=== PATIENT | female | born 1965 | race Caucasian/White ===

== ENCOUNTER 2021-02-05 16:22 | Outpatient (CLI) | payer BC, SELFPAY ==
--- NOTE | ~2021-02-05 | MM_ITS ---
EXAMINATION: MM screening samreen BI w olivia HISTORY: Screening mammogram TECHNIQUE: Craniocaudal and mediolateral oblique 3-D tomosynthesis images were obtained and synthetic 2-D images were generated. CAD analysis was submitted and interpreted. COMPARISON: 10/05/2019 left diagnostic mammogram and limited left breast ultrasound 09/12/2019, 06/18/2017 bilateral digital screening mammogram examinations BREAST PARENCHYMAL COMPOSITION: The breasts are heterogeneously dense, which may obscure small masses . FINDINGS: There is question of new asymmetry in the posterior inner and posterior outer right breast on craniocaudal projection. Diagnostic right mammogram is recommended, with ultrasound if required. Otherwise there is no evidence of suspicious mass, calcification, or architectural distortion to sugg est malignancy in either breast. There has been no other suspicious interval change. IMPRESSION: 1. Question of new asymmetry in posterior inner and posterior outer right breast since 06/18/2017 2. Diagnostic right mammogram is recommended, with ultrasound if required BI-RADS Category 0: Incomplete: Needs additional imaging evaluation. Reviewed, dictated and finalized at location A. IMPRESSION: 1. Question of new asymmetry in posterior inner and posterior outer right breas t since 06/18/2017 2. Diagnostic right mammogram is recommended, with ultrasound if required BI-RADS Category 0: Incomplete: Needs additional imaging evaluation.
== END 2021-02-05 16:23 | disposition home or self-care (01) ==
LOC: ANHIMG 16:26
PROVIDERS: PCP Family Medicine; Visit Provider Obstetrics & Gynecology
DX: Z12.31 Encounter for screening mammogram for malignant neoplasm of breast (principal); R92.8 Other abnormal and inconclusive findings on diagnostic imaging of breast
CPT/HCPCS: 77063; 77067

== ENCOUNTER 2021-03-07 11:11 | Outpatient (CLI) | payer BC, SELFPAY ==
--- NOTE | ~2021-03-07 | MMUS_ITS ---
EXAMINATION: MM diagnostic mammo unilat RT, US breast RT complete HISTORY: Question of new asymmetry in posterior inner and posterior outer right breast on 02/05/2001 s creening mammogram TECHNIQUE: Additional full field ML and spot ML, MLO and craniocaudal 3-D tomosynthesis images of the right breast were performed and synthetic 2-D images were generated. CAD analysis was submitted and interpreted. High resolution complete right breast ultrasound was performed. COMPARISON: 02/05/2021 bilateral digital screening mammogram FINDINGS: MAMMOGRAPHIC FINDINGS: No suspicious mass or architectural distortion, malignant calcification, skin thickening or retractio n is detected. ULTRASOUND: 9:00 4 cm from nipple: 2.2 x 2.3 mm hypoechoic lesion without internal vascularity or posterior shado wing 10:00 5 cm from nipple: 1.8 x 2.4 mm hypoechoic lesion without internal vascularity. No suspicious mass or shadowing is detected elsewhere. IMPRESSION: 1. Probable benign hypoechoic lesions at 9:00 and 10:00 2. 6 month targeted 9 and 10:00 right breast ultrasound follow-up is recommended BI-RADS category 3, probably benign findings. Reviewed, dictated and finalized at location A. IMPRESSION: 1. Probable benign hypoechoic lesions at 9:00 and 10:00 2. 6 month targeted 9 and 10:00 right breast ultrasound follow-up is recommende d BI-RADS category 3, probably benign findings.
== END 2021-03-07 11:12 | disposition home or self-care (01) ==
LOC: ANHIMG 11:13
PROVIDERS: PCP Family Medicine; Visit Provider Obstetrics & Gynecology
DX: R92.8 Other abnormal and inconclusive findings on diagnostic imaging of breast (principal)
CPT/HCPCS: 76641; 77065

== ENCOUNTER 2021-08-22 13:50 | Outpatient (CLI) | payer BC, SELFPAY ==
--- NOTE | ~2021-08-22 | US_ITS ---
US breast RT limited 08/22/2021 14:30 Indication: Right breast pain Procedure: High-resolution ultrasound of the right breast Comparison: 03/07/2021 Findings: There are small cyst in the right breast at 9 and 10:00, largest measuring 3 mm. No suspici ous masses to suggest malignancy. Impression: 1: No sonographic evidence for malignancy in the right breast. Routine yearly screening mammogram and regular clinical breast examination are recommended. BI-RADS CATEGORY 2 - BENIGN FINDINGS Reviewed, dictated and finalized at location A. GRINDER Impression: 1: No sonographic evidence for malignancy in the right breast. Routine yearly screening mammogram and regular clinical breast examination are recommended. BI-RADS CATEGORY 2 - BENIGN FINDINGS
== END 2021-08-22 13:51 | disposition home or self-care (01) ==
PROVIDERS: PCP Family Medicine; Visit Provider Obstetrics & Gynecology
DX: N64.4 Mastodynia (principal)
CPT/HCPCS: 76642

== ENCOUNTER 2022-01-05 08:50 | Outpatient (CLI) | payer BC, SELFPAY ==
--- NOTE | 2022-01-12 15:01 | WPDHOMESLEEP ---
Sleep Study - Home Unattended Date of Study: 01/05/22 Ordering Provider: Mikey Stephen MD Interpreting Provider: Usha Moraes, DO Home Sleep Study Type: Apnea Link Air Height: 1.63 m Weight: 86.183 kg Body Mass Index: 32.5 Neck Circumference (inches): 15 [place]: 7 Reason for Sleep Study Trouble falling asleep and staying asleep. Daytime hypersomnia Sleep History The patient is a 56-year-old female with postmenopausal syndrome, GERD, seasonal allergies, hyperlipidemia and history of tobacco abuse that had a sleep study ordered for evaluation sleep apnea. 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 She rarely awakens from sleep short of breath. She occasionally awakens at night with heartburn, belching or cough. She frequently snores and is occasionally loud enough that others complain. She frequently has trouble sleeping when she has a cold. She denies waking up gasping for air throughout the night. She rarely has breathing problems at night observed by herself or others. She frequently sweats excessively at night. She rarely has heart palpitations or irregular heartbeats during the night. She occasionally falls asleep during the day but never while driving. She occasionally experiences loss of muscle tone when extremely emotional. She occasionally has trouble at school or work due to sleepiness. She denies sleep paralysis. She frequently experiences vivid dreamlike scenes upon awakening or falling asleep. She occasionally has nightmares. She frequently remembers her dreams. She frequently has thoughts racing through her mind. She occasionally feels sad or depressed. She frequently has anxiety. She frequently has muscular tension. She occasionally notices parts of her body jerk. She frequently kicks during the night. She rarely experiences crawling and aching feelings in her legs as well as leg pain during the night. She denies grinding her teeth during sleep awakening with morning jaw pain. She is rarely bothered by pain during the day but never awakened by pain during the night. She occasionally wakes up feeling stiff in the morning. She rarely wakes up with sore achy muscles. She occasionally wakes up with pain in the neck, spine or other joints. She goes to bed at 8:00 p.m. on weekdays and between 8 and 10:00 p.m. on the weekends. It takes her 30 minutes to 2 hours to fall asleep. She wakes up at least 2 times throughout the night for unknown reasons. She will try to go back to sleep and change positions in bed. On average it takes her 2 hours to fall asleep. She wakes up between 5 and 6:00 a.m. on both weekdays and weekends. She typically gets between 5 and 6 hours of sleep per night. She will stay in bed for 3-5 minutes after waking up in the morning. She currently lives with her . She does not consume any caffeinated beverages within 2 hours of bedtime. She does not engage in physical exercise before bedtime. She will watch television before falling asleep. She will take naps in the afternoon or the evening but they are not refreshing. She drinks 2 cups of caffeinated beverage per day. She drinks 2 alcoholic beverages per month. She quit smoking cigarettes and June 2021. She denies recreational drug use. [facility] Past Medical History Medical History Acute low back pain without sciatica Acute thoracic back pain BMI 32.0-32.9,adult BMI 33.0-33.9,adult BMI 34.0-34.9,adult Encounter for screening for other viral diseases Insomnia Overactive bladder Seborrheic keratosis Tension headache, chronic Vitamin D deficiency, unspecified Family History Family History Mother Patient's mother is in good health Sibling Patient's sister is in good health Grandparent Acute myocardial infarction, Onset Age: 74 Social History Social History (Reviewed 01/12/22 @ 15:08
[2022-01-12 15:14] VITALS: BMI 32.5
== END 2022-01-06 12:08 | disposition home or self-care (01) ==
LOC: ANHCSM 08:50
PROVIDERS: PCP Family Medicine; Visit Provider Family Medicine
DX: G47.10 Hypersomnia, unspecified (principal); G47.9 Sleep disorder, unspecified
CPT/HCPCS: 95806

== ENCOUNTER 2024-01-12 14:20 | Outpatient (CLI) | payer BC, SELFPAY ==
--- NOTE | ~2024-01-12 | MM_ITS ---
EXAMINATION: MM screening samreen BI w olivia HISTORY: Screening TECHNIQUE: Craniocaudal and mediolateral oblique 3-D tomosynthesis images were obtained and synthetic 2-D images were generated. CAD analysis was submitted and interpreted. COMPARISON: Comparison to multiple prior studies sequentially, with oldest reviewed study dated 06/04. BREAST PARENCHYMAL COMPOSITION: Not dense: There are scattered areas of fibroglandular density. FINDINGS: There is no evidence of suspicious mass, calcification, or architectural distortion to sugg est malignancy in either breast. There has been no suspicious interval change. IMPRESSION: 1. No mammographic evidence of malignancy. 2. Recommend routine screening mammography in one year. BI-RADS Category 1: Negative Reviewed, dictated and finalized at location B.
== END 2024-01-12 14:21 | disposition home or self-care (01) ==
LOC: ANHIMG 14:25
PROVIDERS: PCP Family Medicine; Visit Provider Obstetrics & Gynecology
DX: Z12.31 Encounter for screening mammogram for malignant neoplasm of breast (principal)
CPT/HCPCS: 77063; 77067

== ENCOUNTER → 2025-05-24 11:01 | Outpatient (CLI) | payer BC, SELFPAY ==
--- NOTE | ~2025-05-24 | XR_ITS ---
EXAMINATION: XR heel LT min 2V, 05/24/2025 11:03 CDT HISTORY: M79.672 - Pain in left foot COMPARISON: No comparisons available. Findings: No acute fracture or malalignment. Small calcaneal spur, no acute fracture Soft tissues unremarkable. Impression: No acute fracture or malalignment. Reviewed, dictated and finalized at location A. Impression: No acute fracture or malalignment.
== END ==
LOC: EXPTRAD 11:03
PROVIDERS: PCP Nurse Practitioner Family; Visit Provider Nurse Practitioner Family
DX: M79.672 Pain in left foot (principal)
CPT/HCPCS: 73650

== ENCOUNTER 2025-08-13 09:26 | Outpatient (CLI) | payer BC, SELFPAY ==
--- NOTE | ~2025-08-13 | MM_ITS ---
EXAMINATION: MM screening samreen BI w olivia HISTORY: Screening TECHNIQUE: Craniocaudal and mediolateral oblique 3-D tomosynthesis images were obtained and synthetic 2-D images were generated. CAD analysis was submitted and interpreted. COMPARISON: Comparison to multiple prior studies sequentially, with oldest reviewed study dated 02/05/2021. BREAST PARENCHYMAL COMPOSITION: Not dense: There are scattered areas of fibroglandular density. FINDINGS: Right breast asymmetries are stable. There is no evidence of suspicious mass, calcification, or architectural distortion to suggest malignancy in either breast. There has been no suspicious interval change. IMPRESSION: 1. No mammographic evidence of malignancy. 2. Recommend routine screening mammography in one year. BI-RADS Category 1: Negative Reviewed, dictated and finalized at location I. RITY ANALYST
--- OUTSIDE RECORDS SUMMARY | 2025-08-13 10:12 | XMS_ITS | Clinical Summary ---
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
--- OUTSIDE RECORDS SUMMARY | 2025-08-13 10:12 | XMS_ITS | Encounter Summary ---
Author Organization [facility] Address [address] [place] [address] Care Team Providers Care Goat Driver Name Role Phone Unavailable Primary Care Provider Unavailabl e Encounter Details Date Type Department Care Team (Latest Contact Info) Description 01/14/2001 Outpatient Historical HIS [facility] JAGDISH Calderon, Wallace Echevarria MD [address] [facility] 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
--- OUTSIDE RECORDS SUMMARY | 2025-08-13 10:12 | XMS_ITS | Data Portability ---
Author Organization [employer], Main Office Address [address] [place] [address] Assessment Encounter Date Assessment Date Assessment LastModified by Organization Details LastModified Time 03/23/2024 03/23/2024 This note is dictated and transcribed by [employer]. Recreational Therapy Technician variances may occur. Despite proofreading, typographical errors may occur. Occasional wrong-word or '[id number]' substitutions may have occurred due to the inherent limitations of voice recording. Read the chart carefully and recognize, using context, where substitutions have occurred. [email or web address] Not available 04/12/2024 15:45:20 Plan of Treatment Reminders Order Date Submit Date Provider Last Modified By Organization Details Last Modified Time Details Appointments None record ed. Lab None record ed. Referral None record ed. Procedures None record ed. Surgeries None record ed. Imaging None record ed. Medication Orders None record ed. Patient TargetsNo targets recorded. Patient InstructionsNo instructions recorded. Reason for Referral None Reported. Problems Name Problem SNOMED Code Status Onset Date Resolution Date Notes Provider Name and Address Organization Details Recorded Time Seasonal allergy 151187870 Active 2023 Ly dickens [employer] 4 14:54:44 Malignant neoplasm of cervix uteri 392387146 Active 2023 Ly dickens [employer] 4 14:54:56 Headache 62719114 Active 2023 Ly dickens [employer] [facility] 4 14:55:04 Hyperchole sterolemia 13254313 Active 2023 Ly dickens [employer] 4 14:55:11 Migraine 22107887 Active 2023 Ly dickens [facility] [employer] [facility] 4 14:55:17 Pain in left foot 7654884170795 07 Active 2023 Vazquez Queen DPM [address], [place], [address] , [facility] [employer] [facility] 4 15:45:23 Porokerato sis 497127900 Active 2023 Vazquez Queen DPM [address], [place], [address] , [facility] [employer] [facility] 4 15:45:27 Notes:BACK/NECK PROBLEMS Problem Notes None recorded. Procedures Surgical History Date Name Laterality Status Provider Name and Address Organization Details Recorded Time 03/23/2024 Callus Debridement , One completed Vazquez Queen DPM [address] [facility] [address], [place], [address], [facility] [employer] [facility] 03/23/2024 15:26:52 Imaging Results None recorded. Procedure Notes None recorded. Medical Equipment None Reported. Allergies No known drug allergies Medications Name Sig Start Date Stop Date Status Note LastModified by Organization Details LastModified Time atorvastatin 20 mg tablet 20 MG ORALLY DAILY active Not Available Not Available No t Available famotidine 20 mg tablet TAKE 1 TABLET BY MOUTH TWICE A DAY NEEDED FOR REFLUX active Not Available Not Available No t Available cyanocobalami n (vit B-12) 1,000 mcg/mL injection solution INJECT 1ML INTO THE SKIN ONCE MONTHLY active Not Available Not Available No t Available BD Luer-Pati Syringe 3 mL 25 gauge x 1 USE WITH VITAMIN B12 INJECTION active Not Available Not Available No t Available ergocalcifero l (vitamin D2) 1,250 mcg (50,000 unit) capsule TAKE 1 CAPSULE BY MOUTH ONCE WEEKLY active Not Available Not Available No t Available Vitals Date Recorded Body height Body mass index (BMI) Body weight Provider Name and Address Organization Details Last Updated DateTime 03/23/2024 162.56 cm 32.6 kg/m2 01948.55 g Ly Robertson [facility] [employer] [facility] 03/23/2024 14:54:02 Date Recorded Heart rate Systolic And Diastolic Provider Name and Address Organization Details Last Updated DateTime 03/23/2024 73 /min 143/81 mm[Hg] Omayra Paris CNA [place] [employer] [facility] [employer] 03/23/2024 14:28:39 Social History Question Answer Notes LastModified by Organizat [employer] Details LastModified Time Tobacco Smoking Status Former Smoker Ly Robertson null, [facility] [employer] [facility] 03/23/2024 14:56:29 When Did You Quit Smoking? 1-5yearssinc elastcigaret te Information not available 03/23/2024 How Many Years Have You Smoked Tobacco? 4 Information not available 03/23/2024 Sex: Unknown Functional Status Question Answer Note LastModified by Organ[employer] Details LastModified Time What is your level of alcohol consumption? Occasional Information not available 03/23/2024 Mental Status None recorded. Family History Relationship Description Onset Age of this Age Resolved Age Notes LastModified by Organization Details LastModified Time Maternal Grandmother Family history of malignant neoplasm Not available 2023 14:55:49 Medical History Condition Response ALLERGIES/HAYFEVER Y HIGH CHOLESTEROL / HYPERLIPIDEMIA Y BACK / NECK PROBLEMS Y HEADACHES/MIGRAINES Y CANCER: SPECIFY Y Gynecological HistoryNo gynecological history recorded. Obstetrics History GPAL:G 0 P 0 0 0 0 Past Encounters Encounter ID Performer Location Encounter Start Date Encounter Closed Date Diagnosis/Indication Diagnosis SNOMED-CT Code Diagnosis ICD10 Code Diagnosis IMO Codes Diagnosis Note [id number] Vazquez Queen DPM [facility] [address] [place] [address] 03/23/2024 14:22:51 04/12/2024 16:16:15 Pain in left foot 9053895282 81788 M79.672 secondary to below Porokeratosis 684239518 Q82.8 debrided without incidentRe commend over-the-c ounter ureaRecomm end daily use pumice stonesuppo rtive shoe gear recommende d line follow-up as needed Health Concerns Section Related Observation LastModified by Organization Detai ls LastModified Time None Recorded Concern Status LastModified by Organization Details LastModified Time None Recorded Advance Directives Directive None Recorded Payers Insurance Date Sequence Insurance Name Policy Number Policy Purdy Covered Member ID Purdy Member ID Guarantor Name 03/23/[address] [facility] Francie Pacheco [id number] Francie Pacheco 04/12/2024 1 [facility] ([facility] [id number] Francie Pacheco [id number] Francie Pacheco Notes Date Note Type Note Provider Name and Address Organization Details Recorded Time 03/23/2024 text/html . Patient is a 58-year-old female who presents the office with complaints of pain to the left foot. Patient states she is concerned she has a wart to the area of the foot. Patient states she has developed a hard area to the plantar foot with which she when she walks she gets a sharp pain she denies any acute signs of infection. Patient denies any fever, chills, nausea vomiting. Patient states if she has not walking she does not have any pain to the area. Patient explains the pain as being sharp in nature. Patient denies any other complaints. Vazquez Queen DPM [address] [facility] [address], [place], [address], [place] [facility] 04/12/2024 15:46:05 OBGyn Episode No OBEpisode recorded.
== END 2025-08-13 09:27 | disposition home or self-care (01) ==
LOC: ANHFOHIMG 09:27
PROVIDERS: PCP Nurse Practitioner Family; Visit Provider Obstetrics & Gynecology
DX: Z12.31 Encounter for screening mammogram for malignant neoplasm of breast (principal)
CPT/HCPCS: 77063; 77067